=== PATIENT | female | born 1950 | race Caucasian/White ===

== ENCOUNTER 2022-10-29 09:34 | Outpatient (CLI) | payer MEDICARE ==
--- NOTE | 2022-10-30 10:37 | Mammography Report ---
BILATERAL DIGITAL SCREENING MAMMOGRAM 3D/2D WITH EXAGGERATED CC: 10/29/2022 CLINICAL: Routine screening. Baseline exam. No prior exams were available for comparison. Both breasts are heterogeneously dense, which may obscure small masses (category c / 51-75% glandular tissue). No significant masses, calcifications, or other findings are seen in either breast. IMPRESSION: NEGATIVE There is no mammographic evidence of malignancy. A 1 year screening mammogram is recommended. Based on the Tyrer Cuzick model (a risk assessment model) the patients lifetime risk is 8.9% and her 10 year risk is 5.3%. According to the ACR, ACS, and NCCN guidelines, an annual breast MRI exam ledy g with mammogram is recommended if the patients lifetime risk is 20% or greater. This exam was interpreted at Station ID: [id number]. NOTE: For mammograms, a report in lay terms will be sent to the patient. Approximately 15% of breast malignancies will not be visualized mammographically. In the management of a palpable breast mass, a negative mammogram must not discourage biopsy of a clinically suspicious lesion. Electronically Signed By: Tawny flores/radha:10/29/2022 16:26:16 letter sent: No_Letter ACR BI-RADS Category 1: Negative 3341F PARENCHYMAL PATTERN: (D) - The breast(s) demonstrate(s) heterogeneously dense fibroglandular citlalli glez. BI-RADS CATEGORY: (1) - 1 Mammogram [id number] 1 year screening LATERALITY: (B)
== END 2022-10-29 09:35 | disposition home or self-care (01) ==
LOC: DI.S 09:34
PROVIDERS: ATTEND Internal Medicine
DX: Z12.31 Encounter for screening mammogram for malignant neoplasm of breast (principal)

== ENCOUNTER 2022-11-11 09:59 | Outpatient (CLI) | payer MEDICARE | END 2022-11-11 10:00 | disposition home or self-care (01) | LOC: RT 09:59 | PROVIDERS: ATTEND Obstetrics & Gynecology | DX: I10 Essential (primary) hypertension (principal) | CPT/HCPCS: 93005 ==

== ENCOUNTER 2022-11-11 16:45 | Outpatient (CLI) | payer MEDICARE ==
--- NOTE | 2022-11-12 10:29 | Ultrasound Report ---
PROCEDURE: Pelvic w/Transvaginal INDICATIONS: BLEEDING POSTMENOPAUSAL. Note: Vaginal polyp biopsy 8 years prior. TECHNIQUE: Real-time scanning was performed of the pelvic organs, with image documentation. Additional endovagi nal scanning was necessary due to incomplete visualization of the adnexal and endometrial structures by transabdominal scanning. COMPARISON: None. FINDINGS: Uterus: Uterus is anteverted and normal in size at 4.4 x 1.9 x 3.5 cm. The myometrium is heterogene ous. The endometrium measures 2.6 mm in combined thickness. Intramural fibroid along the posterior, middle uterine segment measuring 1.1 cm. Pedunculated fibroid along the left lateral aspect measurin g 5.3 cm. Ovaries: Right ovary is not visualized. The left ovary measures 1.5 x 0.8 x 1.9 cm, with a calculate d ovarian volume of 1.2 cc. The ovaries have a normal sonographic appearance. Less than 12 follicle s can be seen in the left ovary. No adnexal masses are seen. No cystic lesions measuring greater [place] n 3 cm. Other: No pathologic free abdominal or pelvic fluid. Medial mass measures 3.5 x 2.5 x 1.4 cm. IMPRESSION: Endometrial stripe measures 2.6 mm, within normal limits. A couple of intramural/peduncular fibroids, as above. Largest measures 5.3 cm. Previously biopsied labial mass measuring 3.5 x 2.5 x 1.4 cm. Reviewed by: Coy Tinajero on 11/12/2022 10:27 AM PDT Approved by: Coy Tinajero on 11/12/2022 10:27 AM PDT Station ID: [id number]
== END 2022-11-11 16:46 | disposition home or self-care (01) ==
LOC: DI 16:45
PROVIDERS: ATTEND Obstetrics & Gynecology
DX: N95.0 Postmenopausal bleeding (principal); D25.1 Intramural leiomyoma of uterus; N90.89 Other specified noninflammatory disorders of vulva and perineum; I10 Essential (primary) hypertension
CPT/HCPCS: 93005

== ENCOUNTER 2023-01-06 08:44 | Outpatient (CLI) | payer MEDICARE | END 2023-01-06 08:45 | disposition home or self-care (01) | LOC: LAB 08:44 | PROVIDERS: ATTEND Obstetrics & Gynecology | DX: Z01.812 Encounter for preprocedural laboratory examination (principal); N84.0 Polyp of corpus uteri | CPT/HCPCS: 86850; 86900; 86901 ==

== ENCOUNTER 2023-01-07 10:17 | Day surgery (SDC) | payer MEDICARE ==
[2023-01-07] MEDS ORDERED: LACTATED RINGERS 1,000 ML IV ONE (10:36)
[2023-01-07] MEDS ORDERED: ONDANSETRON 4 MG/2 ML VIAL ONE (10:59)
[2023-01-07] MEDS ORDERED: DEXAMETHASONE 4 MG/ML VIAL ONE (10:59)
--- NOTE | 2023-01-07 11:06 | ANESTHESIA ---
Pre-Anesthesia VS, & Labs - Diagnosis uterine polyp - Procedure myosure, hysteroscopy, uterine biopsy Vital Signs: Temp Pulse Resp BP Pulse Ox O2 Flow Rate 36.5 C 73 16 158/85 H 95 0 01/07/23 10:38 01/07/23 10:38 01/07/23 10:38 01/07/23 10:38 01/07/23 10:38 01/07/23 10:38 Height: 5 ft 8 in Weight (kg): 79 kg Body Mass Index: 26.4 BMI Classification: Overweight - NPO >8 hours - Is Patient ?: No - Lab Results Lab results reviewed: Yes Home Medications and Allergies Home Medications: Ambulatory Orders hydroCHLOROthiazide [Hydrodiuril] 25 mg PO DAILY 12/27/22 hydroCHLOROthiazide [Hydrodiuril] 25 mg PO DAILY 12/27/22 Allergies/Adverse Reactions: Allergies Allergy/AdvReac Type Severity Reaction Status Date / Time No Known Drug Allergies Allergy Verified 12/27/22 10:31 Anes History & Medical History - Anesthetic History Anesthesia Complications: reports: No previous complications Family history of Anesthesia Complications: Denies Family history of Malignant Hyperthermia: Denies - Medical History Cardiovascular: reports: Hypertension Pulmonary: reports: None Gastrointestinal: reports: None Urinary: reports: None Musculoskeletal: reports: None Endocrine/Autoimmune: reports: None Blood Disorders: reports: None Skin: reports: None Smoking Status: Former smoker - Surgical History Gynecologic: reports: Dilation and currettage Exam General: Alert, Oriented x3, Cooperative Dental: Partials Upper (upper right molar broken w removal cap, pt removing preop) Mouth Openin Fingerbreadth Neck Mobility: Normal Mallampati classification: I Thyromental Distance: 4-6 cm Respiratory: Lungs clear Cardiovascular: Regular rate Plan Anesthesia Type: MAC Consent for Procedure(s) Verified and Reviewed: Yes Code Status: Attempt Resuscitation ASA classification: 2-Mild systemic disease Is this case an emergency?: No
[2023-01-07] MEDS ORDERED: HYDROmorphone 0.5 MG/0.5 ML SYRINGE IVP PRN (11:07)
[2023-01-07] MEDS ORDERED: ePHEDrine 50 MG/ML VIAL IVP PRN (11:07)
[2023-01-07] MEDS ORDERED: NALOXONE 0.4 MG/ML VIAL IVP PRN (11:07)
[2023-01-07] MEDS ORDERED: fentaNYL 100 MCG/2 ML VIAL IVP PRN (11:07)
[2023-01-07] MEDS ORDERED: ATROPINE ABBOJECT 1 MG/10 ML SYRINGE IVP PRN (11:07)
[2023-01-07] MEDS ORDERED: ONDANSETRON 4 MG/2 ML VIAL IVP PRN (11:07)
[2023-01-07] MEDS ORDERED: PROPOFOL 500 MG/50 ML 500 MG/50 ML VIAL ONE ×2 (11:18→11:52)
[2023-01-07] MEDS ORDERED: BUPIVACAINE 0.25% PF 30 ML VIAL ONE (11:33)
[2023-01-07] MEDS ORDERED: fentaNYL 100 MCG/2 ML VIAL ONE (11:50)
[2023-01-07] MEDS ORDERED: LACTATED RINGERS 1,000 ML IV SCH (12:00)
[2023-01-07] MEDS ORDERED: BUPIVACAINE 0.25% PF 30 ML VIAL SUBQ ONE (12:02)
[2023-01-07] MEDS ORDERED: oxyCODONE 5 MG TABLET PO PRN (12:07)
--- NOTE | 2023-01-07 12:13 | OPERATIVE REPORT ---
Operative Report - General Procedure Date: 01/07/23 Planned Procedure: Hysteroscopy, cervical versus uterine polypectomy, hysteroscopy, possible MyoSure D&C Pre-Op Diagnosis: Cervical polyp Procedure Performed: Cervical polypectomy Post Op Diagnosis: Cervical polyp - Procedure Note Primary Surgeon: Harvinder Ramos MD Anesthesia Provider: Tapan Hyatt CRNA Anesthesia Technique: General mask Pathology: Cervical polyp Estimated Blood Loss (mL): 20 Urine Output (mL): 0 (Voided prior to procedure) Complications: None - Other Other Information/Narrative: Patient was taken to the OR and placed in dorsolithotomy position. She is prepped and draped in sterile usual fashion. A bivalve speculum is used to visualize the cervix. A large polyp was seen extruding from the cervical os feeling most of the vagina to the introitus. A ring forcep used to grasp the polyp [place] stock and was twisted, however due to the thickness, it would not continue removal, so it Bovie cautery was used to incise the stock inside the cervix. The specimen was sent to pathology. She had an approximately an 8 cm x 4 cm polyp. The stalk edge was cauterized. Attempt was made to dilate the cervix, but no clear cervical canal was found, and due to the recent resection, I felt I was digging into cervical stroma rather than the cervical os and did not feel like I can safely continue hysteroscopy, so that procedure was abandoned. Hudson that the patient if still having issues, would benefit from a hysterectomy or attempt hysteroscopy after healing. The tenaculum was removed and a small amount of bleeding on the posterior tenaculum site was noted. This was cauterized. Due to the oozing from the cervical stump, Monsel solution was applied to the cervical os. All instruments were removed from the vagina. Surgical counts were correct. Patient tolerated procedure well. Patient was taken to the PACU in stable condition.
[2023-01-07] MEDS ORDERED: FERRIC SUBSULFATE 8 ML SOLUTION (FOR OR) TOP ONE (12:17)
--- NOTE | 2023-01-07 12:52 | ANESTHESIA POST OP EVALUATION ---
Anesthesia Post Eval - Post Anesthesia Eval Vitals: Last Vital Signs Temp 36.1 C L 01/07/23 12:45 Pulse 64 01/07/23 12:45 Resp 16 01/07/23 12:45 BP 143/61 H 01/07/23 12:45 Pulse Ox 96 01/07/23 12:45 O2 Flow Rate 0 01/07/23 10:38 CV Function Including HR & BP: Stable Pain Control: Satisfactory Nausea & Vomiting: Negative Mental Status: Baseline Respiratory Status: Airway Patent Hydration Status: Satisfactory Anesthesia Complications: None
[2023-01-07 13:23] VITALS: BP 127/68
[2023-01-07] MEDS ORDERED: IBUPROFEN 600 MG TABLET PO SCH (18:00)
== END 2023-01-07 10:18 | disposition home or self-care (01) ==
LOC: SDS 10:17
PROVIDERS: ATTEND Obstetrics & Gynecology
PROC: 0UBC7ZZ Excision of Cervix, Via Natural or Artificial Opening (ICD-10-PCS; principal; 2023-01-07 11:30)
DX: N84.1 Polyp of cervix uteri (principal); Z87.891 Personal history of nicotine dependence
CPT/HCPCS: 57500; J7120

== ENCOUNTER 2023-09-24 08:00 | Outpatient (CLI) | payer MEDICARE ==
--- NOTE | 2023-09-24 10:21 | XRAY Report ---
PROCEDURE: Elbow 3+V LT INDICATIONS: CELLULITIS OF LEFT ELBOW TECHNIQUE: 3 views of the elbow were acquired. COMPARISON: None. FINDINGS: Bones: No definite fracture or subluxation is seen. Questionable displacement of posterior fat pad. Anterior fat pad appears unremarkable. Soft tissue swelling about the elbow noted. Soft tissues: As above IMPRESSION: Soft tissue swelling of the elbow with questionable displacement of the posterior fat pad; cannot exc lude septic arthritis of the elbow based on these images. Reviewed by: Boris Leos MD on 09/24/2023 10:20 AM PST Approved by: Boirs Leos MD on 09/24/2023 10:20 AM PST Station ID: [id number]
== END 2023-09-24 23:59 | disposition home or self-care (01) ==
LOC: DI.S 08:00
PROVIDERS: ATTEND Registered Nurse
DX: R29.898 Other symptoms and signs involving the musculoskeletal system (principal); L03.114 Cellulitis of left upper limb

== ENCOUNTER 2023-09-25 07:00 | Outpatient (CLI) | payer MEDICARE ==
[2023-09-25 16:53] LABS: CC,BF RBC > 3000 /mm^3; CC,BF WBC 25375 /mm^3
[2023-09-25 17:05] LABS: BF CLARITY BLOODY; BF COLOR BLOODY; BF SOURCE SYNOVIAL; LYMPHOCYTES %,BODY FLUID 0 %; MESOTHELIAL %, BF 0 %; MONOCYTES %,BODY FLUID 1 %; NEUTROPHILS %, BF 99 %
== END 2023-09-25 23:59 | disposition home or self-care (01) ==
LOC: LAB.S 07:00
PROVIDERS: ATTEND Emergency Medicine
DX: L03.114 Cellulitis of left upper limb (principal)
CPT/HCPCS: 87070; 87205; 89051

== ENCOUNTER 2023-09-29 08:54 | Outpatient (CLI) | payer MEDICARE ==
[2023-09-29 09:08] LABS: BASOPHILS # (AUTO) 0.1 10^3/uL (0.0-0.1); EOSINOPHILS # (AUTO) 0.2 10^3/uL (0.0-0.7); EOSINOPHILS % (AUTO) 2.7 %; HCT - HEMATOCRIT 40.1 % (37.0-47.0); HGB - HEMOGLOBIN 12.8 g/dL (12.0-16.0); LYMPHOCYTES # (AUTO) 1.3 10^3/uL (1.5-3.5); LYMPHOCYTES % (AUTO) 15.6 %; MEAN CORPUSCULAR HEMOGLOBIN 29.7 pg (27.0-31.0); MEAN CORPUSCULAR HGB CONC 31.9 g/dL (32.0-36.0); MEAN PLATELET VOLUME 9.7 fL (7.9-10.8); MONOCYTES # (AUTO) 0.5 10^3/uL (0.0-1.0); MONOCYTES % (AUTO) 5.8 %; NEUTROPHILS % (AUTO) 74.5 %; PLT - PLATELET COUNT 318 10^3/uL (130-450); RED BLOOD COUNT 4.31 10^6/uL (4.20-5.40); RED CELL DISTRIBUTION WIDTH 12.8 % (12.0-15.0); WHITE BLOOD COUNT 8.1 x10^3/uL (4.8-10.8)
[2023-09-29 09:19] LABS: INR 1.1 (0.8-1.2); PT - PROTHROMBIN TIME 12.5 secs (9.9-12.6)
[2023-09-29 09:21] LABS: CALCIUM 9.4 mg/dL (8.5-10.3); CREATININE 0.8 mg/dL (0.6-1.3); POTASSIUM 4.3 mmol/L (3.5-4.5)
== END 2023-09-29 08:55 | disposition home or self-care (01) ==
LOC: LAB 08:54
PROVIDERS: ATTEND Emergency Medicine
DX: L03.114 Cellulitis of left upper limb (principal)
CPT/HCPCS: 36415; 80048; 85025; 85610

== ENCOUNTER 2023-10-27 09:35 | Outpatient (CLI) | payer MEDICARE ==
[2023-10-27 14:29] LABS: BASOPHILS # (AUTO) 0.1 10^3/uL (0.0-0.1); BASOPHILS % (AUTO) 0.9 %; EOSINOPHILS # (AUTO) 0.3 10^3/uL (0.0-0.7); EOSINOPHILS % (AUTO) 4.2 %; HCT - HEMATOCRIT 40.9 % (37.0-47.0); HGB - HEMOGLOBIN 12.9 g/dL (12.0-16.0); LYMPHOCYTES # (AUTO) 1.4 10^3/uL (1.5-3.5); LYMPHOCYTES % (AUTO) 19.8 %; MEAN CORPUSCULAR HEMOGLOBIN 29.9 pg (27.0-31.0); MEAN CORPUSCULAR HGB CONC 31.5 g/dL (32.0-36.0); MEAN CORPUSCULAR VOLUME 94.7 fL (81.0-99.0); MEAN PLATELET VOLUME 11.1 fL (7.9-10.8); MONOCYTES # (AUTO) 0.5 10^3/uL (0.0-1.0); MONOCYTES % (AUTO) 7.8 %; NEUTROPHILS # (AUTO) 4.6 10^3/uL (1.5-6.6); NEUTROPHILS % (AUTO) 67.2 %; PLT - PLATELET COUNT 246 10^3/uL (130-450); RED BLOOD COUNT 4.32 10^6/uL (4.20-5.40); RED CELL DISTRIBUTION WIDTH 13.9 % (12.0-15.0); WHITE BLOOD COUNT 6.9 x10^3/uL (4.8-10.8)
[2023-10-27 14:32] LABS: SLIDE REVIEW? Indicated
[2023-10-27 15:06] LABS: ALBUMIN 4.1 g/dL (3.2-5.5); ALKALINE PHOSPHATASE 79 IU/L (42-121); ALT ALANINE AMINOTRANSFERASE 9 IU/L (10-60); AST ASPARTATE AMINOTRANSFERASE 12 IU/L (10-42); BILIRUBIN,TOTAL 0.6 mg/dL (0.2-1.0); BUN - BLOOD UREA NITROGEN 12 mg/dL (6-20); CALCIUM 9.8 mg/dL (8.5-10.3); CARBON DIOXIDE - CO2 29 mmol/L (21-32); CHLORIDE 107 mmol/L (101-111); CHOL/HDL RATIO 2.5 (<4.4); CHOLESTEROL 133 mg/dL; CREATININE 0.7 mg/dL (0.6-1.3); GFR - MDRD 83 (>89); GLUCOSE 85 mg/dL (74-104); HDL CHOLESTEROL 54 mg/dL; LDL CHOLESTEROL,CALCULATED 64 mg/dL; LDL/HDL RATIO 1.2 (<4.4); SODIUM 141 mmol/L (135-145); TOTAL PROTEIN 6.2 g/dL (6.4-8.9); TRIGLYCERIDES 73 mg/dL (48-352); VLDL CHOLESTEROL 15 mg/dL
[2023-10-27 20:49] LABS: ESTIMATED AVERAGE GLUCOSE 97 mg/dL (70-100)
== END 2023-10-27 09:36 | disposition home or self-care (01) ==
LOC: LAB.S 09:35
PROVIDERS: ATTEND Internal Medicine
DX: I10 Essential (primary) hypertension (principal); Z13.220 Encounter for screening for lipoid disorders; Z83.2 Family history of diseases of the blood and blood-forming organs and certain disorders involving the immune mechanism
CPT/HCPCS: 36415; 80053; 80061; 83036; 83721; 85025